=== PATIENT | female | born 1960 | race Caucasian/White ===

== ENCOUNTER 2023-12-04 15:47 | Emergency (ER) | payer OTHER ==
[~2023-12-04] VITALS: Ht 172.7 cm; Wt 91.0 kg
[~2023-12-04 15:47] MED LIST: FLUO20CA39; NALT50TA4
[2023-12-04 16:24] VITALS: PULSE 90; TEMP 98.5; O2SAT 99
[2023-12-04 16:37] LABS: BASOPHILS % 1.5 % (0.0-2.0); EOSINOPHILS % 1.8 % (0.0-5.0); HEMOGLOBIN. 14.2 g/dL (12.0-16.0); LYMPHOCYTES % 37.5 % (20.0-50.0); MEAN CORPUSCULAR HEMOGLOBIN 27.7 pg (28.0-32.0); MEAN CORPUSCULAR VOLUME 83.9 fL (81.0-99.0); MEAN PLATELET VOLUME 7.9 fl (7.4-10.4); MONOCYTES % 4.9 % (2.0-8.0); NEUTROPHILS % 54.3 % (40.0-76.0); PLATELET 315 x1000/uL (130-400); RED BLOOD CELL COUNT 5.13 mill/uL (4.2-5.4); RED CELL DISTRIBUTION WIDTH 15.3 % (11.6-14.6); WHITE BLOOD COUNT 5.7 x1000/uL (4.5-11.0)
[2023-12-04 16:43] LABS: CHLORIDE 102 mEq/L (98-107); POTASSIUM 4.2 mEq/L (3.5-5.1); SODIUM 138 mEq/L (136-145)
[2023-12-04 16:44] LABS: CARBON DIOXIDE 29 mEq/L (21-32)
[2023-12-04 16:45] LABS: CALCIUM 9.8 mg/dL (8.7-10.4)
[2023-12-04 16:49] LABS: CREATININE 1.2 mg/dL (0.6-1.0); GLUCOSE 107 mg/dL (70-105); UREA NITROGEN BLOOD 12 mg/dL (9-23)
[2023-12-04 16:51] LABS: ALANINE AMINOTRANSFERASE 14 IU/L (10-49); ALBUMIN 4.4 g/dL (3.2-4.8); ASPARTATE AMINOTRANSFERASE 16 IU/L (<34)
[2023-12-04 16:52] LABS: BILIRUBIN DIRECT 0.2 mg/dL (<=3.0); BILIRUBIN TOTAL 0.6 mg/dL (0.1-1.0); PROTEIN TOTAL 7.6 g/dL (6.0-8.3)
[2023-12-04 18:45] LABS: CLARITY URINE CLEAR (CLEAR); COLOR URINE YELLOW (YELLOW); GLUCOSE URINE NEGATIVE (NEGATIVE); KETONES URINE NEGATIVE (NEGATIVE); LEUKOCYTE ESTERASE URINE NEGATIVE (NEGATIVE); NITRITE URINE NEGATIVE (NEGATIVE); OCCULT BLOOD URINE NEGATIVE (NEGATIVE); PROTEIN URINE NEGATIVE (NEGATIVE); SPECIFIC GRAVITY URINE 1.021 (1.005-1.030); UROBILINOGEN URINE 0.2 E.U./dL (0.2-1.0)
[2023-12-04] MEDS: IBUPROFEN 400MG TABLET PO ONE (19:23)
[2023-12-04] MEDS: HYDROCODONE/ACETAMINOPHEN 5/325MG TABLET PO ONE (19:24)
[2023-12-04 19:29] VITALS: BP 155/131; RESP 18
[2023-12-04] MEDS: LIDOCAINE 5% PATCH TOP STA (19:29)
[2023-12-04] MEDS ORDERED: METH-653 MT (21:14)
[2023-12-04] MEDS ORDERED: LIDO1ADH23 TP (21:14)
[2023-12-04] MEDS ORDERED: IBUP-2028 MT (21:14)
== END 2023-12-04 21:36 | disposition home or self-care (01) ==
LOC: ER 15:47
DX: M48.56XA Collapsed vertebra, not elsewhere classified, lumbar region, initial encounter for fracture (principal); Z90.710 Acquired absence of both cervix and uterus
CPT/HCPCS: 36415; 74176; 80048; 80076; 81003; 85025; 93005; 99284